=== PATIENT | male | born 1965 | race Caucasian/White ===

== ENCOUNTER 2022-06-25 21:23 | Observation (INO) | payer OTHER ==
[~2022-06-25] VITALS: Ht 185.4 cm; Wt 90.7 kg
--- NOTE | 2022-06-25 21:31 | NUR ---
PT BROUGHT TO BED 4 VIA [facility]
--- NOTE | 2022-06-25 21:46 | NUR ---
DAUGHTER PORTER [phone]
[2022-06-25 21:47] VITALS: BP 131/85
--- NOTE | 2022-06-25 21:55 | NUR ---
Patient lying in bed, A/Ox4, chest rise and fall symmetrical, no c/o pain or s/s of distress, patient on monitor.
[2022-06-25 22:39] LABS: BASOPHILS % (AUTO) 0.8 % (0.0-2.0); EOSINOPHILS # (AUTO) 0.1 K/uL (0-0.4); EOSINOPHILS % (AUTO) 2.6 % (0.0-4.0); HEMATOCRIT 42.5 % (36-52); HEMOGLOBIN 14.4 g/dL (12.0-18.0); LYMPHOCYTES # (AUTO) 1.4 K/uL (2.0-11.5); LYMPHOCYTES % (AUTO) 29.3 % (20.5-51.1); MEAN CORPUSCULAR HEMOGLOBIN 30 pg (27-31); MEAN CORPUSCULAR HGB CONC 34 g/dL (33-37); MEAN CORPUSCULAR VOLUME 89.1 fL (80-94); MONOCYTES # (AUTO) 0.3 K/uL (0.8-1.0); MONOCYTES % (AUTO) 5.7 % (1.7-9.3); NEUTROPHILS % (AUTO) 61.6 % (42.2-75.2); PLATELET COUNT (AUTO) 177 K/uL (140-450); RED BLOOD CELL COUNT(AUTO) 4.77 MIL/uL (4.20-6.10); RED CELL DISTRIBUTION WIDTH 13.9 % (11.6-13.7); WHITE BLOOD COUNT (AUTO) 4.9 K/uL (4.8-10.8)
--- NOTE | 2022-06-25 23:05 | NUR ---
Patient lying in bed, A/Ox4, chest rise and fall symmetrical, no c/o pain or s/s of distress, patient on monitor.
[2022-06-25 23:08] LABS: ANION GAP 10.5 (8-16); CARBON DIOXIDE 25.3 mmol/L (21-32); POTASSIUM 3.8 mmol/L (3.5-5.1)
[2022-06-25 23:14] LABS: ALBUMIN 3.8 g/dL (3.4-5.0); CREATININE 0.9 mg/dL (0.6-1.3); TOTAL BILIRUBIN 0.3 mg/dL (0.0-1.0)
--- NOTE | 2022-06-26 01:00 | NUR ---
Patient lying in bed, A/Ox4, chest rise and fall symmetrical, no c/o pain or s/s of distress, patient on monitor.
[2022-06-26 01:02] LABS: APPEARANCE,URINE CLEAR (CLEAR); BILIRUBIN,URINE NEGATIVE (NEGATIVE); BLOOD, URINE NEGATIVE (NEGATIVE); COLOR,URINE YELLOW (YELLOW); LEUKOCYTE ESTERASE ,URINE NEGATIVE (NEGATIVE); NITRITE, URINE NEGATIVE (NEGATIVE); UGLUCOSE NEGATIVE (NEGATIVE)
[2022-06-26] MEDS ORDERED: POTASSIUM CHLORIDE 10 MEQ TABER PO PRN (02:50)
[2022-06-26] MEDS ORDERED: HYDROcodone/APAP 5/325 MG 1 TAB TAB PO PRN (02:50)
[2022-06-26] MEDS ORDERED: ONDANSETRON 4 MG/2 ML VIAL IVP PRN (02:50)
[2022-06-26] MEDS ORDERED: MAG SULF 2000 MG/WATER PREMIX 50 ML IV PRN (02:50)
[2022-06-26] MEDS: NACL 0.9% 1,000 ML IV SCH ×2 (02:50→15:20)
[2022-06-26] MEDS ORDERED: MORPHINE SULFATE 4 MG/ML SYR IVP PRN (02:50)
[2022-06-26] MEDS ORDERED: ZOLPIDEM 5 MG TAB PO PRN (02:50)
[2022-06-26] MEDS ORDERED: KCL 20 MEQ/WATER INJ PREMIX 200 ML IV PRN (02:50)
[2022-06-26] MEDS ORDERED: ACETAMINOPHEN 325 MG TAB PO PRN (02:50)
--- NOTE | 2022-06-26 03:00 | NUR ---
Patient lying in bed, A/Ox4, chest rise and fall symmetrical, no c/o pain or s/s of distress, patient on monitor.
[2022-06-26 03:14] LABS: BARBITURATE, URINE NEGATIVE ng/ml (NEG <=200); BENZODIAZEPINE, URINE NEGATIVE ng/mL (NEG <=200); CANNABINOID, URINE NEGATIVE ng/mL (NEG <=50); COCAINE, URINE NEGATIVE ng/mL (NEG <=300); OPIATE, URINE NEGATIVE ng/mL (NEG <=2000); PHENCYCLIDINE SCREEN,URINE NEGATIVE ng/mL (NEG <=25)
[2022-06-26] MEDS ORDERED: GABA300C PO (03:39)
--- NOTE | 2022-06-26 05:05 | NUR ---
Patient lying in bed, A/Ox4, chest rise and fall symmetrical, no c/o pain or s/s of distress, patient on monitor.
--- NOTE | 2022-06-26 07:01 | NUR ---
Patient lying in bed, A/Ox4, chest rise and fall symmetrical, no s/s of distress, patient on monitor.
--- NOTE | 2022-06-26 07:28 | NUR ---
Patient lying in bed, A/Ox4, chest rise and fall symmetrical, no s/s of distress, patient on monitor.
--- NOTE | 2022-06-26 07:52 | NUR ---
Patient will be admitted to care of luann boykin . Admitted to telemetry. Will go to room 120A. Belongings list completed.
[2022-06-26 08:00] VITALS: BP 143/92
[2022-06-26 12:00] VITALS: BP 125/76
[2022-06-26] MEDS ORDERED: POLYVINYL ALCOHOL 1.4% OP 15 ML SOL OP PRN (13:15)
[2022-06-26] MEDS ORDERED: CARBOXYMETHYLCELLULOSE 1% OP PRN (13:30)
[2022-06-26] MEDS ORDERED: EYE OP PRN (13:30)
[2022-06-26] MEDS ORDERED: APIXABAN 2.5 MG TAB PO SCH (21:00)
== END 2022-06-26 16:25 | disposition home or self-care (01) ==
LOC: MED 21:23 → MTU 06-26 02:52
PROVIDERS: ADMIT Internal Medicine; ATTEND Internal Medicine
DX: R55 Syncope and collapse (principal); Z20.822 Contact with and (suspected) exposure to COVID-19; I10 Essential (primary) hypertension; G61.81 Chronic inflammatory demyelinating polyneuritis; Z86.711 Personal history of pulmonary embolism; Z86.718 Personal history of other venous thrombosis and embolism; Z79.01 Long term (current) use of anticoagulants; Z79.899 Other long term (current) drug therapy
CPT/HCPCS: 36415; 70450; 71045; 80053; 80305; 81003; 83605; 83880; 84484; 85025; 87040; 87426; 93880; 96360; 96361; 99285; C8929; G0378; G0482; Q0092